=== PATIENT | male | born 1985 | race Caucasian/White ===

== ENCOUNTER → 2018-05-16 13:54 | Outpatient (CLI) | payer SELFPAY ==
--- NOTE | 2018-05-16 14:03 | RAD_ITS ---
STUDY: X-RAY - LEFT ANKLE REASON FOR EXAM: Male, 32 years old. Pain following a fall. TECHNIQUE: 3 view(s) of the ankle. COMPARISON: None. FINDINGS: Normal visualized distal tibia and fibula. Normal medial and lateral malleoli. Normal tibiotalar articulation and ankle mortise. Normal visualized talus and calcaneus. The visualized subtalar, talonavicular, calcaneocuboid and tarsal articulations are normal. Soft tissue swelling. RAD/Ankle min 3 Views IMPRESSION: Soft tissue swelling. Electronically Signed: Ramon Lamar MD at 14:31 EDT Tel [phone], Service support ,
== END ==
PROVIDERS: Visit Provider Physician Assistant
DX: S93.402A Sprain of unspecified ligament of left ankle, initial encounter (principal)
CPT/HCPCS: 73610